=== PATIENT | male | born 1965 | race Caucasian/White ===

== ENCOUNTER → 2019-01-17 | Outpatient (CLI) | payer MEDICARE ==
[~2019-01-17] MED LIST: BICT1TAB PO; GEMF600T8 PO; GLIP5TAB10 PO; METF500T17 PO; PRAV40TA2 PO
== END | disposition home or self-care (01) ==
LOC: PETCFH 09:37
PROVIDERS: ATTEND Internal Medicine
DX: C81.91 Hodgkin lymphoma, unspecified, lymph nodes of head, face, and neck (principal); D68.9 Coagulation defect, unspecified; R59.0 Localized enlarged lymph nodes
CPT/HCPCS: 78815; A9552

== ENCOUNTER 2019-01-22 10:04 | Day surgery (SDC) | payer MEDICARE ==
[~2019-01-22] VITALS: Ht 152.4 cm; Wt 118.0 kg
[2019-01-22] MEDS ORDERED: PLEASE ENTER HEIGHT AND WEIGHT MC SCH (10:30)
[2019-01-22] MEDS ORDERED: VANCOMYCIN PMX 1GM/200ML 200 ML IV ONE (10:30)
[2019-01-22 10:48] VITALS: BP 142/91
[2019-01-22] MEDS ORDERED: LIDOCAINE 1%, 20ML ONE (11:02)
[2019-01-22] MEDS ORDERED: MIDAZOLAM 1 MG/ML, 5ML ONE (12:11)
[2019-01-22] MEDS ORDERED: FLUMAZENIL 0.1 MG/1 ML, 5ML ONE (12:11)
[2019-01-22] MEDS ORDERED: FENTANYL PF 100 MCG/2ML ONE (12:11)
[2019-01-22] MEDS ORDERED: NALOXONE 1 MG/ML, 2ML ONE (12:11)
[2019-01-22] MEDS ORDERED: OXYcodone IR 5MG TABLET ONE (14:40)
[2019-01-22] MEDS ORDERED: OXYcodone IR 5MG TABLET PO ONE (15:00)
== END 2019-01-22 15:30 | disposition home or self-care (01) ==
LOC: OUT 10:04
PROVIDERS: ATTEND Internal Medicine
DX: Z45.2 Encounter for adjustment and management of vascular access device (principal); C81.90 Hodgkin lymphoma, unspecified, unspecified site; E11.9 Type 2 diabetes mellitus without complications; B20 Human immunodeficiency virus [HIV] disease; E78.5 Hyperlipidemia, unspecified; Z85.828 Personal history of other malignant neoplasm of skin; Z88.1 Allergy status to other antibiotic agents; Z88.8 Allergy status to other drugs, medicaments and biological substances; Z98.890 Other specified postprocedural states; Z88.0 Allergy status to penicillin; Z79.84 Long term (current) use of oral hypoglycemic drugs
CPT/HCPCS: 36561; 76937; 77001; 99156; 99157; C1769; C1788; C1894; J1642; J2250; J3010; J3370; J2310

== ENCOUNTER → 2019-01-24 | Outpatient (CLI) | payer MEDICARE | END | disposition home or self-care (01) | LOC: CVU 11:54 | PROVIDERS: ATTEND Internal Medicine | DX: C81.91 Hodgkin lymphoma, unspecified, lymph nodes of head, face, and neck (principal); I08.8 Other rheumatic multiple valve diseases; D68.9 Coagulation defect, unspecified; E78.5 Hyperlipidemia, unspecified | CPT/HCPCS: 0399T; 93306; 94060; 94726; 94729 ==

== ENCOUNTER → 2019-06-12 | Outpatient (CLI) | payer MEDICARE | END | disposition home or self-care (01) | LOC: ROC 09:01 | PROVIDERS: ATTEND Radiology Radiation Oncology | DX: C81.11 Nodular sclerosis Hodgkin lymphoma, lymph nodes of head, face, and neck (principal) | CPT/HCPCS: 99213; G0463 ==

== ENCOUNTER → 2019-08-21 | Outpatient (CLI) | payer MEDICARE | END | disposition home or self-care (01) | LOC: PETCFH 07:40 | PROVIDERS: ATTEND Internal Medicine | DX: C81.11 Nodular sclerosis Hodgkin lymphoma, lymph nodes of head, face, and neck (principal); D73.89 Other diseases of spleen; D68.9 Coagulation defect, unspecified | CPT/HCPCS: 78815; A9552 ==

== ENCOUNTER 2019-09-09 09:39 | Day surgery (SDC) | payer MEDICARE ==
[~2019-09-09] VITALS: Ht 180.3 cm; Wt 117.0 kg
[2019-09-09] MEDS ORDERED: SODIUM CHLORIDE 0.9% 1,000 ML IV SCH (10:08)
[2019-09-09 10:10] VITALS: BP 132/82
[2019-09-09] MEDS ORDERED: LIDOCAINE 1%, 20ML ONE (12:04)
[2019-09-09] MEDS ORDERED: LIDOCAINE 1%, 10ML ONE (12:04)
[2019-09-09] MEDS ORDERED: MIDAZOLAM 1 MG/ML, 5ML ONE (12:20)
[2019-09-09] MEDS ORDERED: FENTANYL PF 100 MCG/2ML ONE (12:20)
[2019-09-09] MEDS ORDERED: FLUMAZENIL 0.1 MG/1 ML, 5ML ONE (12:20)
[2019-09-09] MEDS ORDERED: NALOXONE 1 MG/ML, 2ML ONE (12:21)
== END 2019-09-09 13:55 | disposition home or self-care (01) ==
LOC: OUT 09:39
PROVIDERS: ATTEND Internal Medicine
DX: Z45.2 Encounter for adjustment and management of vascular access device (principal); C81.11 Nodular sclerosis Hodgkin lymphoma, lymph nodes of head, face, and neck; D68.9 Coagulation defect, unspecified; E11.9 Type 2 diabetes mellitus without complications; Z88.2 Allergy status to sulfonamides; Z88.8 Allergy status to other drugs, medicaments and biological substances
CPT/HCPCS: 36590; 77001; 99156; 99157; J1642; J2250; J3010; J2310

== ENCOUNTER 2020-11-30 07:42 | Outpatient (CLI) | payer MEDICARE ==
[~2020-11-30 07:42] MED LIST changes: +GEMF-31 PO; -GEMF600T8 PO
[2020-11-30] MEDS ORDERED: REGADENOSON 0.4 MG/5 ML SYRINGE ONE (07:49)
== END 2020-12-01 23:59 | disposition home or self-care (01) ==
LOC: CFH 07:42
PROVIDERS: ATTEND Internal Medicine Clinical Cardiac Electrophysiology
DX: I08.0 Rheumatic disorders of both mitral and aortic valves (principal); I25.9 Chronic ischemic heart disease, unspecified; R07.9 Chest pain, unspecified
CPT/HCPCS: 78452; 93017; 93306; A9502; J2785

== ENCOUNTER 2021-01-20 09:58 | Day surgery (SDC) | payer MEDICARE ==
[~2021-01-20] VITALS: Ht 180.3 cm; Wt 125.0 kg
[2021-01-20] MEDS ORDERED: FENTANYL PF 100 MCG/2ML ONE (13:14)
[2021-01-20] MEDS ORDERED: HEPARIN 1,000 UNITS/ML, 10ML ONE (13:14)
[2021-01-20] MEDS ORDERED: MIDAZOLAM 1 MG/ML, 5ML ONE (13:14)
[2021-01-20] MEDS ORDERED: VERAPAMIL 2.5 MG/ML, 2ML ONE (13:14)
[2021-01-20] MEDS ORDERED: LIDOCAINE-MPF 1%, 5ML ONE (13:14)
[2021-01-20 13:15] VITALS: BP 160/85
[2021-01-20] MEDS ORDERED: NITROGLYCERIN 5 MG/ML, 10ML ONE (13:26)
[2021-01-20 13:32] LABS: BASOPHILS % (AUTO) 0 % (0-1); EOSINOPHILS % (AUTO) 4 % (1-7); LYMPHOCYTES % (AUTO) 39 % (22-44); MEAN CORPUSCULAR HEMOGLOBIN 29.6 pg (27.5-34.5); MEAN PLATELET VOLUME 7.9 fL (7.4-10.4); MONOCYTES % (AUTO) 8 % (2-9); NEUTROPHILS % (AUTO) 50 % (42-75); PLATELET COUNT 215 x10^3/uL (130-400); RED BLOOD COUNT 4.78 x10^6/uL (4.38-5.82); RED CELL DISTRIBUTION WIDTH 15.4 % (9.4-14.8)
[2021-01-20 13:37] LABS: ANION GAP 3 mmol/L (5-15); CALCIUM 8.8 mg/dL (8.5-10.1); CHLORIDE 113 mmol/L (98-107); CREATININE 0.79 mg/dL (0.7-1.3)
== END 2021-01-20 15:37 | disposition home or self-care (01) ==
LOC: CACL 09:58
PROVIDERS: ATTEND Internal Medicine Cardiovascular Disease
DX: R94.39 Abnormal result of other cardiovascular function study (principal); I10 Essential (primary) hypertension; E11.9 Type 2 diabetes mellitus without complications; E78.5 Hyperlipidemia, unspecified; E66.9 Obesity, unspecified; Z68.41 Body mass index [BMI] 40.0-44.9, adult; Z79.4 Long term (current) use of insulin; Z79.899 Other long term (current) drug therapy; Z88.0 Allergy status to penicillin; Z88.2 Allergy status to sulfonamides; Z88.8 Allergy status to other drugs, medicaments and biological substances
CPT/HCPCS: 36415; 80048; 85025; 93458; 99156; C1769; C1894; J1644; J2250; J3010; Q9967